=== PATIENT | male | born 1970 | race Caucasian/White ===

== ENCOUNTER 2020-09-04 20:58 | Emergency (ER) | payer MEDICARE ==
[~2020-09-04] VITALS: Ht 175.3 cm; Wt 85.2 kg
[~2020-09-04 20:58] MED LIST: ACYC-12 PO; ALPR0.5T PO; ALPR1TAB6 PO; ASPI-630 PO; CLOZ100T PO; DESM0.2T20 PO; DESM10SP4 NS; FLUO20CA16 PO; FOLI1TAB16 PO; HYDR-2765 PO; HYDR-3165 PO; LITH600C PO; MELA3TAB4 PO; METF500T16 PO; MIRT30TA2 PO; PANT40GR PO; PROP20TA PO; TAMS0.4C97 PO; TRAZ-125 PO; ZOLP10TA PO
--- NOTE | 2020-09-04 22:27 | PHYS DOC ---
Past History Past Medical History: Anxiety, Bipolar, Depression, Diabetes, GERD, Schizophrenia, Other Past Surgical History: Appendectomy, Other Alcohol Use: None Drug Use: None Adult General Chief Complaint Chief Complaint: MECHANICAL FALL HPI HPI Patient is a 49-year-old male with a past medical history significant for schizophrenia, bipolar, anxiety and depression who presents with a chief complaint of fatigue and lightheadedness. States that he was sitting at home earlier today, and got up from his chair and felt a little lightheaded and had to sit down. States that after sitting down for a few seconds it did go away and as long as he gets up slow it does not happen. States this has been happening occasionally over the last several months. Denies any syncope, injury, recent illnesses, fevers, chest pain, shortness of breath, abdominal pain, nausea, vomiting, dysuria, hematuria, diarrhea or blood in the stool. States he is taking all his medications as prescribed. Denies any alcohol or drug use. Does state that he does not drink any water, only drinking soda throughout the day. Review of Systems Review of Systems Review of systems otherwise unremarkable except noted in HPI Allergies Allergies Allergies Coded Allergies Type Severity Reaction Last Updated Verified No Known Drug Allergies 08/11/14 No Physical Exam Physical Exam Constitutional: Well developed, well nourished, no acute distress, non-toxic appearance. [] HENT: Normocephalic, atraumatic, bilateral external ears normal, oropharynx moist, no oral exudates, nose normal. [] Eyes: PERRLA, EOMI, conjunctiva normal, no discharge. [] Neck: Normal range of motion, no tenderness, supple, no stridor. [] Cardiovascular:Heart rate regular rhythm, no murmur [] Lungs & Thorax: Bilateral breath sounds clear to auscultation [] Abdomen: soft, no tenderness, no masses, no pulsatile masses. [] Skin: Warm, dry, no erythema, no rash. [] Extremities: No tenderness, no cyanosis, no clubbing, ROM intact, no edema. [] Neurologic: Alert and oriented X 3, normal motor function, normal sensory function, no focal deficits noted, able to ambulate without issue. [] Psychologic: Affect normal, judgement normal, mood normal. [] Current Patient Data Vital Signs Vital Signs Date Time Temp Pulse Resp B/P (MAP) Pulse Ox O2 Delivery O2 Flow Rate FiO2 09/04/20 21:03 98.2 88 16 155/95 (115) 98 Room Air EKG EKG [] Radiology/Procedures Radiology/Procedures [] Heart Score C/O Chest Pain: No Risk Factors: Risk Factors: DM, Current or recent (<one month) smoker, HTN, HLP, family history of CAD, obesity. Risk Scores: Risk Factors: DM, Current or recent (<one month) smoker, HTN, HLP, family history of CAD, obesity. Course & Med Decision Making Course & Med Decision Making Patient is a 49-year-old male who presents with a chief complaint of fatigue and lightheadedness episode earlier in the day Vital signs notable for mild hypertension. Physical exam noted above. EKG noted above and normal. Orthostatic vital signs reassuring. Capillary refill at about 3 to 4 seconds. Offered further work-up including lab analysis and urinalysis. Patient states he feels well and probably should not have come to the emergency department and would just like to go home. Patient asymptomatic in the emergency department with no complaints and states he feels safe to discharge home and requested a note as he is in a alf house. Gave strict return precautions to the ED. Patient grateful, verbalized understanding and agreed with plan of discharge. Dragon Disclaimer Dragon Disclaimer This electronic medical record was generated, in whole or in part, using a voice recognition dictation system. Departure Departure: Impression: Primary Impression: Episodic lightheadedness Disposition: 01 HOME / SELF CARE / HOMELESS Condition: GOOD Referrals: ALICIA ORTA (PCP) Patient Instructions: Dizziness Additional Instructions: Please read all the attached information carefully. Please continue all your medications as prescribed. Please increase your water intake as discussed and decrease your soda intake. Please call your primary care physician first thing in the morning to update them on your recent ED visit and set up a follow-up appointment. Please come back to the emergency department immediately with new or concerning symptoms as discussed. SONIA GORDON MD September 04, 2020 22:27
[2020-09-05] VITALS: BP 150/90
--- NOTE | 2020-09-05 02:26 | EKG ---
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
== END 2020-09-05 00:03 | disposition home or self-care (01) ==
LOC: ER 20:58
DX: R42 Dizziness and giddiness (principal); R53.83 Other fatigue; F41.9 Anxiety disorder, unspecified; F31.9 Bipolar disorder, unspecified; E11.9 Type 2 diabetes mellitus without complications; K21.9 Gastro-esophageal reflux disease without esophagitis; F20.9 Schizophrenia, unspecified
CPT/HCPCS: 93005; 99283

== ENCOUNTER → 2021-01-04 | Outpatient (CLI) | payer MEDICARE ==
--- NOTE | 2021-01-04 09:07 | RAD ---
EXAM: ULTRASOUND ABDOMEN COMPLETE CLINICAL HISTORY: Epigastric pain COMPARISON: None available. TECHNIQUE: Ultrasound of the upper abdomen was performed. FINDINGS: The liver length measures 19 cm. Moderate increased echogenicity identified in the liver likely hepat ic steatosis. The aorta, IVC are not well-visualized due to bowel gas. The common bile duct measures 4.8 mm in transverse dimension. The spleen measures 15 cm in length. The right kidney measures 11.9 x 5.6 x 5.2 cm in the left kidney measures 12.9 x 4.8 x 4.9 cm. The gallbladder is not identified prob ably cholecystectomy changes. The pancreas is not well-visualized due to bowel gas. IMPRESSION: 1. Hepatomegaly with hepatic steatosis. 2. The gallbladder is not identified probably cholecystectomy changes. Electronically signed by: Douglas Mera MD (01/04/2021 9:04 AM) [id number]
== END ==
LOC: US 07:43
PROVIDERS: ATTEND Internal Medicine Gastroenterology
DX: K76.0 Fatty (change of) liver, not elsewhere classified (principal)
CPT/HCPCS: 76700